=== PATIENT | female | born 1935 | race Caucasian/White ===

== ENCOUNTER 2017-06-22 16:04 | Outpatient (CLI) | payer MEDICARE, OTHER ==
--- NOTE | 2017-06-22 17:33 | RAD ---
RIGHT SHOULDER THREE VIEWS: History: Right shoulder pain. Comparison: 08-15-14 FINDINGS: Acromioclavicular and glenohumeral alignment are maintained. Chronic widening of the acromioclavicula r space is stable. Coracoclavicular distance is within normal limits. No acute fracture or dislocatio n are visible. IMPRESSION: No acute osseous abnormalities are demonstrated. POS: [facility]
== END 2017-06-22 16:05 | disposition home or self-care (01) ==
LOC: TBSIIMAG 16:04
PROVIDERS: ATTEND Psychiatry & Neurology Neurology
DX: G56.20 Lesion of ulnar nerve, unspecified upper limb (principal)

== ENCOUNTER 2017-11-12 16:40 | Emergency (ER) | payer MEDICARE, OTHER ==
[2017-11-12 17:28] LABS: #Basophils 0.1 thou/uL (0.0-0.2); #Eosinphils 0.2 thou/uL (0.0-0.7); #Monocytes 0.7 thou/uL (0.11-0.59); #Neutrophils 5.5 thou/uL (1.40-6.50); %Basophils 0.7 % (0.0-1.0); %Eosinophils 2.5 % (0.0-10.0); %Lymphocytes 23.2 % (21.0-51.0); %Monocytes 7.9 % (0.0-10.0); %Neutrophils 65.7 % (42.0-75.0); Hemoglobin 14.5 g/dL (12.0-16.0); Mean Corpuscular HGB CONC 34.8 g/dL (32.0-36.0); Mean Corpuscular Hemoglobin 30.6 pg (27.0-31.0); Mean Corpuscular Volume 87.9 fl (81.0-99.0); Mean Platelet Volume 8.7 fL (7.4-10.4); Platelet Count 188 thou/uL (130-400); RBC Distribution Width 11.8 % (11.5-14.5); Red Blood Cell (RBC) Count 4.74 mill/uL (4.20-5.40); White Blood Cell (WBC) Count 8.4 thou/uL (4.8-10.8)
[2017-11-12 17:51] LABS: ALT (SGPT) 37 U/L (8-55); AST (SGOT) 37 U/L (5-34); Albumin 4.6 g/dL (3.4-4.8); Alkaline Phosphatase 52 U/L (40-150); Anion Gap 13 mmol/L (10-20); BUN (Urea Nitrogen) 23 mg/dL (9.8-20.1); Bilirubin, Total 0.5 mg/dL (0.2-1.2); CK (CPK) 120 U/L (29-168); Calc. Creatinine Clearance 0 mL/min (70-130); Calcium 9.9 mg/dL (7.8-10.44); Carbon Dioxide 25 mmol/L (23-31); Chloride 104 mmol/L (98-107); Estimated GFR-MDRD 29; Globulin 2.6 g/dL (2.4-3.5); Glucose 150 mg/dL (83-110); Potassium 4.2 mmol/L (3.5-5.1); Protein, Total 7.2 g/dL (6.0-8.3); Sodium 138 mmol/L (136-145)
[2017-11-12] MEDS ORDERED: hydrALAZINE 20 MG/ML VIAL ONE (17:52)
[2017-11-12 17:56] LABS: CKMB 1.7 ng/mL (0-6.6); Troponin I Less than 0.010 ng/mL (< 0.028)
[2017-11-12 18:18] LABS: Bilirubin Negative (Negative); Blood, Urine Negative (Negative); Clarity CLEAR (Clear); Glucose, Urine (Dipstick) Negative (Negative); Leukocyte Negative (Negative); Nitrite Negative (Negative); Protein, Urine (Dipstick) Negative (Neg-Trace); Specific Gravity, Urine 1.006 (1.002-1.036); Urobilinogen 0.2 mg/dL (0.2-1.0); pH, Urine 6.5 (5.0-9.0)
== END 2017-11-12 19:25 | disposition home or self-care (01) ==
LOC: ERS 16:40
DX: I12.9 Hypertensive chronic kidney disease with stage 1 through stage 4 chronic kidney disease, or unspecified chronic kidney disease (principal); N18.4 Chronic kidney disease, stage 4 (severe); E11.9 Type 2 diabetes mellitus without complications; E03.9 Hypothyroidism, unspecified; E78.5 Hyperlipidemia, unspecified; M81.0 Age-related osteoporosis without current pathological fracture; Z79.899 Other long term (current) drug therapy; Z79.82 Long term (current) use of aspirin
CPT/HCPCS: 36415; 80053; 81003; 82550; 82553; 84484; 85025; 93005; 94760; 96361; 96374; J0360

== ENCOUNTER 2017-12-21 09:26 | Outpatient (CLI) | payer MEDICARE, OTHER | END 2017-12-21 09:27 | disposition home or self-care (01) | LOC: BICMAMMO 09:26 | PROVIDERS: ATTEND Internal Medicine | DX: Z12.31 Encounter for screening mammogram for malignant neoplasm of breast (principal); Z13.820 Encounter for screening for osteoporosis; M85.89 Other specified disorders of bone density and structure, multiple sites | CPT/HCPCS: 77063; 77067; 77080 ==

== ENCOUNTER 2018-02-27 10:31 | Outpatient (CLI) | payer MEDICARE, OTHER | END 2018-02-27 10:32 | disposition home or self-care (01) | LOC: BICRAD 10:31 | PROVIDERS: ATTEND Otolaryngology Plastic Surgery within the Head & Neck | DX: R05 Cough (principal); M35.3 Polymyalgia rheumatica | CPT/HCPCS: 71046 ==

== ENCOUNTER 2018-03-31 10:08 | Emergency (ER) | payer MEDICARE, OTHER ==
--- NOTE | 2018-03-31 11:03 | RAD ---
LEFT HIP TWO VIEWS: HISTORY: Injury. Pain. COMPARISON: None. FINDINGS: There is no acute fracture or malalignment. The left obturator ring is intact. Numerous phleboliths in the pelvis. Moderate vascular calcifications. There is enthesopathic change of the left greater trochanter. IMPRESSION: 1. No acute abnormality. 2. Low grade degenerative changes. 3. Mild enthesopathic changes of the greater trochanter can be seen with chronically gluteus medius tendinosis and partial tearing. POS: [facility]
== END 2018-03-31 11:57 | disposition home or self-care (01) ==
LOC: ERS 10:08
DX: M25.552 Pain in left hip (principal); E03.9 Hypothyroidism, unspecified; E78.5 Hyperlipidemia, unspecified; N18.4 Chronic kidney disease, stage 4 (severe); Z79.899 Other long term (current) drug therapy; Z79.82 Long term (current) use of aspirin; X50.1XXA Overexertion from prolonged static or awkward postures, initial encounter

== ENCOUNTER 2018-12-02 06:00 | Emergency (ER) | payer MEDICARE, OTHER ==
--- NOTE | 2018-12-02 07:54 | ULT ---
LEFT LOWER EXTREMITY VENOUS DOPPLER: 12/02/2018 PROVIDED CLINICAL HISTORY: Left knee pain. FINDINGS: Herr-scale and color Doppler sonographic was performed with spectral analysis of the left common femo ral, femoral, popliteal, posterior tibial, greater saphenous, and profunda femoral veins, demonstrati ng a normal sonographic appearance to each. Popliteal fossa and Mann's cysts are noted. IMPRESSION: No sonographic evidence for left lower extremity deep venous thrombosis. POS: [facility]
--- NOTE | 2018-12-02 08:07 | RAD ---
LEFT KNEE RADIOGRAPHS FOUR VIEWS: 12/02/2018 PROVIDED CLINICAL HISTORY: Left leg pain. FINDINGS: No evidence for fracture or other acute osseous abnormality. Moderate knee joint capsular distention . If there is persistent clinical concern, conservative management and follow-up imaging are advised . Chondrocalcinosis and vascular calcification. IMPRESSION: As above. POS: [facility]
== END 2018-12-02 08:02 | disposition home or self-care (01) ==
LOC: ERS 06:00
DX: M25.562 Pain in left knee (principal); E11.9 Type 2 diabetes mellitus without complications; Z79.4 Long term (current) use of insulin

== ENCOUNTER 2018-12-10 08:21 | Emergency (ER) | payer MEDICARE, OTHER ==
[2018-12-10 08:56] LABS: #Basophils 0.1 thou/uL (0.0-0.2); #Eosinphils 0.1 thou/uL (0.0-0.7); #Lymphocytes 1.5 thou/uL (1.20-3.40); #Monocytes 0.8 thou/uL (0.11-0.59); #Neutrophils 7.5 thou/uL (1.40-6.50); %Basophils 0.6 % (0.0-1.0); %Eosinophils 0.5 % (0.0-10.0); %Monocytes 7.7 % (0.0-10.0); %Neutrophils 76.2 % (42.0-75.0); Hemoglobin 11.3 g/dL (12.0-16.0); Mean Corpuscular Hemoglobin 27.5 pg (27.0-31.0); Mean Corpuscular Volume 86.1 fL (78.0-98.0); Mean Platelet Volume 7.3 fL (7.4-10.4); Platelet Count 414 thou/uL (130-400); RBC Distribution Width 12.9 % (11.5-14.5); Red Blood Cell (RBC) Count 4.09 mill/uL (4.20-5.40); White Blood Cell (WBC) Count 9.8 thou/uL (4.8-10.8)
[2018-12-10 09:19] LABS: ALT (SGPT) 15 U/L (8-55); AST (SGOT) 18 U/L (5-34); Albumin 3.7 g/dL (3.4-4.8); Alkaline Phosphatase 66 U/L (40-150); Anion Gap 14 mmol/L (10-20); BUN (Urea Nitrogen) 30 mg/dL (9.8-20.1); Bilirubin, Total 0.3 mg/dL (0.2-1.2); Calc. Creatinine Clearance 0 mL/min (70-130); Calcium 9.5 mg/dL (7.8-10.44); Carbon Dioxide 26 mmol/L (23-31); Chloride 99 mmol/L (98-107); Estimated GFR-MDRD 37; Globulin 3.3 g/dL (2.4-3.5); Glucose 135 mg/dL (83-110); Potassium 4.2 mmol/L (3.5-5.1); Sodium 135 mmol/L (136-145)
[2018-12-10 09:36] LABS: Bilirubin Negative (Negative); Blood, Urine Negative (Negative); Clarity CLEAR (Clear); Glucose, Urine (Dipstick) Negative (Negative); Leukocyte Negative (Negative); Nitrite Negative (Negative); Protein, Urine (Dipstick) Negative (Neg-Trace); Urobilinogen 0.2 mg/dL (0.2-1.0)
[2018-12-10] MEDS ORDERED: Potassium Chloride 20 MEQ TAB ONE (09:42)
== END 2018-12-10 12:00 | disposition home or self-care (01) ==
LOC: ERS 08:21
DX: E11.649 Type 2 diabetes mellitus with hypoglycemia without coma (principal); E03.9 Hypothyroidism, unspecified; E78.5 Hyperlipidemia, unspecified; E11.22 Type 2 diabetes mellitus with diabetic chronic kidney disease; N18.3 Chronic kidney disease, stage 3 (moderate); Z79.82 Long term (current) use of aspirin; Z79.4 Long term (current) use of insulin; Z79.899 Other long term (current) drug therapy
CPT/HCPCS: 36415; 36416; 80053; 81003; 85025; 87086; 93005; 96360

== ENCOUNTER 2019-01-30 19:52 | Emergency (ER) | payer MEDICARE, OTHER ==
[2019-01-30 21:05] LABS: #Basophils 0.1 thou/uL (0.0-0.2); #Eosinphils 0.2 thou/uL (0.0-0.7); #Lymphocytes 2.1 thou/uL (1.20-3.40); #Monocytes 0.7 thou/uL (0.11-0.59); %Basophils 0.9 % (0.0-1.0); %Eosinophils 1.9 % (0.0-10.0); %Lymphocytes 26.2 % (21.0-51.0); %Monocytes 8.7 % (0.0-10.0); %Neutrophils 62.3 % (42.0-75.0); Hemoglobin 14.4 g/dL (12.0-16.0); Mean Corpuscular HGB CONC 34.1 g/dL (32.0-36.0); Mean Corpuscular Hemoglobin 28.9 pg (27.0-31.0); Mean Corpuscular Volume 84.7 fL (78.0-98.0); Mean Platelet Volume 9.4 fL (7.4-10.4); Platelet Count 184 thou/uL (130-400); RBC Distribution Width 15.2 % (11.5-14.5); White Blood Cell (WBC) Count 8.1 thou/uL (4.8-10.8)
--- NOTE | 2019-01-30 21:11 | CT ---
Head CT without contrast 01/30/2019: HISTORY: Injury, trauma, pain TECHNIQUE: Axial CT imaging at 5 mm intervals from vertex through skull base without contrast FINDINGS: Incompletely imaged anterior soft tissue swelling with increased density noted in the perio rbital region consistent with prominent soft tissue hematoma measuring at least 4.9 cm in transverse dimension. The visualized paranasal sinuses and mastoid air cells are well aerated. There is no displaced calvarial fracture. No intracranial hemorrhage, midline shift, or mass effect. Mild diffuse cerebral volume loss. There is atherosclerotic calcification of the cavernous carotid arteries and the distal vertebral arteries. IMPRESSION: Prominent scalp hematoma anteriorly. No associated fracture or intracranial hemorrhage.
[2019-01-30 21:12] LABS: Prothrombin Time 12.7 SEC (12.0-14.7)
[2019-01-30] MEDS ORDERED: HYDROcodone/Acetaminophen 10/325 mg Tablet ONE ×2 (21:15→21:21)
[2019-01-30 21:26] LABS: ALT (SGPT) 28 U/L (8-55); AST (SGOT) 28 U/L (5-34); Albumin 4.4 g/dL (3.4-4.8); Alkaline Phosphatase 60 U/L (40-150); Anion Gap 17 mmol/L (10-20); BUN (Urea Nitrogen) 36 mg/dL (9.8-20.1); Bilirubin, Total 0.3 mg/dL (0.2-1.2); Calc. Creatinine Clearance 0 mL/min (70-130); Carbon Dioxide 21 mmol/L (23-31); Chloride 102 mmol/L (98-107); Estimated GFR-MDRD 27; Globulin 2.8 g/dL (2.4-3.5); Glucose 156 mg/dL (83-110); Potassium 3.9 mmol/L (3.5-5.1); Protein, Total 7.2 g/dL (6.0-8.3); Sodium 136 mmol/L (136-145)
--- NOTE | 2019-01-30 21:55 | RAD ---
Right hand 3 views: 01/30/2019 COMPARISON: None HISTORY: Fall, trauma, pain FINDINGS: Prominent degenerative changes are noted at the first carpometacarpal joint, the first, sec ond, and third metacarpophalangeal joints, the first interphalangeal joint, and the proximal and distal interphalangeal joints of the second and third digits. No displaced fracture or evidence of dislocation is apparent. IMPRESSION: Prominent degenerative joint disease. No acute fracture or dislocation seen.
== END 2019-01-30 21:40 | disposition home or self-care (01) ==
LOC: ERS 19:52
DX: S06.0X9A Concussion with loss of consciousness of unspecified duration, initial encounter (principal); S00.83XA Contusion of other part of head, initial encounter; E11.22 Type 2 diabetes mellitus with diabetic chronic kidney disease; N18.4 Chronic kidney disease, stage 4 (severe); E03.9 Hypothyroidism, unspecified; E78.5 Hyperlipidemia, unspecified; M81.0 Age-related osteoporosis without current pathological fracture; Z79.899 Other long term (current) drug therapy; Z79.82 Long term (current) use of aspirin; Z79.4 Long term (current) use of insulin; W18.30XA Fall on same level, unspecified, initial encounter
CPT/HCPCS: 36415; 70450; 80053; 85025; 85610; 85730

== ENCOUNTER 2019-04-16 13:22 | Outpatient (CLI) | payer MEDICARE, OTHER ==
--- NOTE | 2019-04-16 16:23 | MMO ---
Bilateral MAMMO Bilat Screen [facility]. CLINICAL HISTORY: Patient is 83 years old and is seen for screening. The patient has no family history of breast cancer. The patient has no personal history of cancer. VIEWS: The views performed were: bilateral craniocaudal with tomosynthesis; bilateral mediolateral oblique with tomosynthesis; and left mediolateral oblique. FILMS COMPARED: The present examination has been compared to prior imaging studies performed at [facility] on 08/01/2014, 08/14/2015, 09/16/2016 and 12/21/2017. This study has been interpreted with the assistance of computer-aided detection. MAMMOGRAM FINDINGS: There are scattered fibroglandular densities. Benign calcifications are noted bilaterally. There are no suspicious masses, suspicious calcifications, or new areas of architectural distortion. IMPRESSION: THERE IS NO MAMMOGRAPHIC EVIDENCE OF MALIGNANCY. A ROUTINE FOLLOW-UP MAMMOGRAM IN 1 YEAR IS RECOMMENDED. THE RESULTS OF THIS EXAM WERE SENT TO THE PATIENT. ACR BI-RADS Category 2 - Benign finding MAMMOGRAPHY NOTE: 1. A negative mammogram report should not delay a biopsy if a dominant of clinically suspicious mass is present. 2. Approximately 10% to 15% of breast cancers are not detected by mammography. 3. Adenosis and dense breasts may obscure an underlying neoplasm. Reported by: KAYY OCAMPO MD Electonically Signed: [id number]
== END 2019-04-16 13:23 | disposition home or self-care (01) ==
LOC: BICMAMMO 13:22
PROVIDERS: ATTEND Internal Medicine
DX: Z12.31 Encounter for screening mammogram for malignant neoplasm of breast (principal)
CPT/HCPCS: 77063; 77067

== ENCOUNTER 2020-01-10 07:49 | Outpatient (CLI) | payer MEDICARE, OTHER ==
--- NOTE | 2020-01-10 08:50 | CT ---
EXAM: CT of the lumbar spine without contrast HISTORY: Low back pain and lumbar radiculopathy COMPARISON: 09/19/2014 TECHNIQUE: Multiple contiguous axial images were obtained in a CT of the lumbar spine without contras t. Sagittal and coronal reformats were performed. FINDINGS: Atherosclerotic calcifications are seen in the aorta. Scattered diverticula are seen in the colon. There is stable anterolisthesis of the L4 vertebral body in relation to the vertebral bodies above and below this level. Endplate degenerative changes are seen surrounding L3/4, unchanged . The L3/4 and L5/S1 intervertebral discs are narrowed. Vacuum phenomenon is seen at L3/4 and L4/5. T12/L1: There may be a small disc osteophyte complex. No significant neural foramina or central canal stenosis. No posterior facet arthrosis. L1/2: There is a small disc osteophyte complex. No posterior facet arthrosis. Mild central canal sten osis. Mild bilateral neural foraminal stenosis. L2/3: There is a small disc osteophyte complex. No posterior facet arthrosis. Mild central canal sten osis. Mild to moderate bilateral neural foraminal stenosis, left greater than right. L3/4: There is a moderate disc osteophyte complex. Moderate bilateral posterior facet arthrosis. Mode rate central canal stenosis. Severe bilateral neural foraminal stenosis. L4/5: There is a large disc osteophyte complex. Severe bilateral posterior facet arthrosis. Severe ce ntral canal stenosis. Severe bilateral neural foraminal stenosis. L5/S1: There is a small disc osteophyte complex. Severe bilateral posterior facet arthrosis. No centr al canal stenosis. Moderate to severe bilateral neural foraminal stenosis. IMPRESSION: Degenerative changes of the lumbar spine as above. Compared to the prior exam, the change s of the neural foramina at L4/5 have worsened.
== END 2020-01-10 07:50 | disposition home or self-care (01) ==
LOC: BICCT 07:49
PROVIDERS: ATTEND Internal Medicine
DX: M47.26 Other spondylosis with radiculopathy, lumbar region (principal)
CPT/HCPCS: 72131

== ENCOUNTER 2020-01-10 07:55 | Outpatient (CLI) | payer MEDICARE, OTHER ==
--- NOTE | 2020-01-10 08:36 | BD ---
EXAM: Bone densitometry using DEXA HISTORY: 84 yo female. Screening for postmenopausal osteoporosis FINDINGS: L1--bone mineral density 0.722 g/sq cm; T score -2.4 ; Z score 0.1 L2--bone mineral density 0.776 g/sq cm; T score -2.3 ; Z score 0.5 L3--bone mineral density 1.132 g/sq cm; T score 0.4 ; Z score 3.4 L4--bone mineral density 1.307 g/sq cm; T score 2.2 ; Z score 5.3 Total L1-L4--bone mineral density 1.006 g/sq cm; T score -0.4 ; Z score 2.5 Left femoral neck--bone mineral density0.705; T score -1.3 ; Z score 1.2 Total proximal left femur--bone mineral density 0.864; T score -0.6 ; Z score 1.7 The 10 year fracture risk for a major osteoporotic fracture is 12% and for a hip fracture is 3.1%. IMPRESSION: Osteopenia
== END 2020-01-10 07:56 | disposition home or self-care (01) ==
LOC: BICMAMMO 07:55
PROVIDERS: ATTEND Internal Medicine Rheumatology
DX: M81.8 Other osteoporosis without current pathological fracture (principal); M85.89 Other specified disorders of bone density and structure, multiple sites
CPT/HCPCS: 77080

== ENCOUNTER 2020-03-05 11:01 | Outpatient (CLI) | payer MEDICARE, OTHER ==
--- NOTE | 2020-03-05 12:10 | CT ---
CT of the thoracic spine: 03/05/2020 HISTORY: Neck pain radiating down the left arm, pain in the mid back TECHNIQUE: Axial CT imaging at 2 mm intervals from lower cervical spine through upper lumbar spine wi thout contrast. Coronal and sagittal reformatted imaging obtained. FINDINGS: There is a mild degree of upper thoracic spine/mid thoracic spine dextroscoliosis centered at the T5 level. There is a dual lead transvenous pacing device, inserted via a left subclavian approach. Evaluation for central canal and/or neural foraminal stenosis is limited on routine CT exam. Partially imaged lung parenchyma demonstrates no acute findings. There is atherosclerotic calcification of the coronary arteries. There is scattered atherosclerotic c alcification of the abdominal aorta. C7-T1: There is disc space narrowing with posterior osteophyte and probable central canal stenosis. U ncovertebral osteophyte formation leads to left neural foraminal stenosis. There is a nonspecific subcentimeter sclerotic focus in the C7 vertebral body. T1-2: There is no osseous cause of significant central canal or neural foraminal stenosis. T2-3: There is no osseous cause of significant central canal or neural foraminal stenosis. T3-4: There are prominent sclerotic degenerative endplate changes. No osseous cause of significant ce ntral canal or neural foraminal stenosis. T4-5: There is bilateral facet hypertrophy with associated bilateral neural foraminal stenosis. No os seous cause of significant central canal stenosis. T5-6: No osseous cause of significant central canal or neural foraminal stenosis. T6-7: There is disc space narrowing with anterior osteophyte formation and sclerotic endplate change. No osseous cause of significant central canal or neural foraminal stenosis. T7-8: The lateral facet hypertrophy with mild bilateral neural foraminal stenosis. Disc space narrowi ng with degenerative endplate change and anterior osteophyte formation. T8-9: Bilateral facet hypertrophy causes mild bilateral neural foraminal stenosis. There is disc spac e narrowing and anterior osteophyte formation. There is a nonspecific subcentimeter sclerotic focus within T8. T9-10: There is disc space narrowing with anterior osteophyte formation. Bilateral facet hypertrophy noted, left greater than right, with probable bilateral neural foraminal stenosis. T10-11: Bilateral facet hypertrophy causes mild bilateral neural foraminal stenosis. There is disc sp cecily narrowing with mild anterior osteophyte formation. T11-12: No osseous cause of significant central canal or neural foraminal stenosis T12-L1: No osseous cause of significant central canal or neural foraminal stenosis. No acute fracture or dislocation is seen involving the thoracic spine. IMPRESSION: No acute osseous abnormality. Incidental/degenerative findings as above.
== END 2020-03-05 11:02 | disposition home or self-care (01) ==
LOC: BICCT 11:01
PROVIDERS: ATTEND Anesthesiology Pain Medicine
DX: M51.24 Other intervertebral disc displacement, thoracic region (principal); M47.814 Spondylosis without myelopathy or radiculopathy, thoracic region
CPT/HCPCS: 72128

== ENCOUNTER 2020-04-29 08:05 | Outpatient (CLI) | payer MEDICARE, OTHER ==
--- NOTE | 2020-04-29 08:44 | MMO ---
Bilateral MAMMO Bilat Screen [facility]. CLINICAL HISTORY: Patient is 84 years old and is seen for screening. The patient has no family history of breast cancer. The patient has no personal history of cancer. The patient has a history of left OTHER - benign - CYST REMOVAL. VIEWS: The views performed were: bilateral craniocaudal with tomosynthesis; bilateral mediolateral oblique with tomosynthesis; and left mediolateral oblique. FILMS COMPARED: The present examination has been compared to prior imaging studies performed at [facility] on 08/14/2015, 09/16/2016, 12/21/2017 and 04/16/2019. This study has been interpreted with the assistance of computer-aided detection. MAMMOGRAM FINDINGS: There are scattered fibroglandular densities. There are stable benign appearing calcifications seen in both breasts. There are also vascular calcifications. There are no suspicious masses, suspicious calcifications, or new areas of architectural distortion. IMPRESSION: THERE IS NO MAMMOGRAPHIC EVIDENCE OF MALIGNANCY. A ROUTINE FOLLOW-UP MAMMOGRAM IN 1 YEAR IS RECOMMENDED. THE RESULTS OF THIS EXAM WERE SENT TO THE PATIENT. ACR BI-RADS Category 2 - Benign finding MAMMOGRAPHY NOTE: 1. A negative mammogram report should not delay a biopsy if a dominant of clinically suspicious mass is present. 2. Approximately 10% to 15% of breast cancers are not detected by mammography. 3. Adenosis and dense breasts may obscure an underlying neoplasm. Reported by: ANA KAMINSKI MD Electonically Signed: [id number]
== END 2020-04-29 08:06 | disposition home or self-care (01) ==
LOC: BICMAMMO 08:05
PROVIDERS: ATTEND Internal Medicine
DX: Z12.31 Encounter for screening mammogram for malignant neoplasm of breast (principal); Z91.89 Other specified personal risk factors, not elsewhere classified
CPT/HCPCS: 77063; 77067

== ENCOUNTER 2020-11-05 15:22 | Outpatient (CLI) | payer MEDICARE, OTHER | END 2020-11-05 15:23 | disposition home or self-care (01) | LOC: BICCT 15:22 | PROVIDERS: ATTEND Anesthesiology Pain Medicine | DX: M48.062 Spinal stenosis, lumbar region with neurogenic claudication (principal); M47.816 Spondylosis without myelopathy or radiculopathy, lumbar region; M47.817 Spondylosis without myelopathy or radiculopathy, lumbosacral region; M48.05 Spinal stenosis, thoracolumbar region; M48.07 Spinal stenosis, lumbosacral region | CPT/HCPCS: 72131 ==

== ENCOUNTER 2021-03-05 07:47 | Outpatient (CLI) | payer MEDICARE, OTHER | END 2021-03-05 07:48 | disposition home or self-care (01) | LOC: BICMAMMO 07:47 | PROVIDERS: ATTEND Internal Medicine Rheumatology | DX: M81.8 Other osteoporosis without current pathological fracture (principal); M85.859 Other specified disorders of bone density and structure, unspecified thigh | CPT/HCPCS: 77080 ==

== ENCOUNTER 2021-03-17 06:56 | Day surgery (SDC) | payer MEDICARE, OTHER ==
[2021-03-13 09:06] VITALS: BMI 22.1
[2021-03-17 07:53] VITALS: BP 134/57; TEMP 97.6
[2021-03-17] MEDS ORDERED: Iopamidol-M 200 41% 20 ML VIAL ONE (10:57)
[2021-03-17] MEDS ORDERED: FLU VACC QS2021-22(65YR UP)/PF 240 MCG/0.7 ML SYRINGE IM ONE (12:00)
== END 2021-03-17 09:35 | disposition home or self-care (01) ==
LOC: RAD 06:56 → EDSTATUS 08:00 → RAD 09:35
PROVIDERS: ATTEND Surgery
PROC: B02B1ZZ Computerized Tomography (CT Scan) of Spinal Cord using Low Osmolar Contrast (ICD-10-PCS; principal; 2021-03-17)
DX: M43.16 Spondylolisthesis, lumbar region (principal); M48.062 Spinal stenosis, lumbar region with neurogenic claudication; M41.86 Other forms of scoliosis, lumbar region; Z79.4 Long term (current) use of insulin; Z79.82 Long term (current) use of aspirin; Z79.899 Other long term (current) drug therapy; Z88.0 Allergy status to penicillin
CPT/HCPCS: 62304; 72132

== ENCOUNTER 2021-04-30 15:23 | Outpatient (CLI) | payer MEDICARE, OTHER ==
[2021-04-30 17:13] LABS: Hemoglobin 14.1 g/dL (12.0-15.5); Mean Corpuscular HGB CONC 32.7 g/dL (32.0-36.0); Mean Corpuscular Hemoglobin 30.1 pg (27.0-33.0); Mean Corpuscular Volume 91.9 fl (81.6-98.3); Mean Platelet Volume 10.2 fl (7.4-10.4); Platelet Count 205 10x3/uL (150-450); RBC Distribution Width 12.4 % (11.5-14.5); Red Blood Cell (RBC) Count 4.69 10x6/uL (3.90-5.03); White Blood Cell (WBC) Count 7.4 10x3/uL (3.5-10.5)
[2021-04-30 17:24] LABS: Prothrombin Time 10.6 sec (9.5-12.1)
[2021-04-30 17:25] LABS: Anion Gap 14 mmol/L (10-20); BUN (Urea Nitrogen) 21 mg/dL (9.8-20.1); Calc. Creatinine Clearance 0 mL/min (70-130); Carbon Dioxide 27 mmol/L (23-31); Chloride 99 mmol/L (98-107); Glucose 122 mg/dL (83-110); Potassium 4.3 mmol/L (3.5-5.1); Sodium 136 mmol/L (136-145)
[2021-05-01 12:08] LABS: SARS-CoV-2 PCR by NAA Not Detected (NotDetected)
== END 2021-04-30 15:24 | disposition home or self-care (01) ==
LOC: LABBT 15:23
PROVIDERS: ATTEND Surgery
DX: Z01.818 Encounter for other preprocedural examination (principal); M54.16 Radiculopathy, lumbar region; M48.062 Spinal stenosis, lumbar region with neurogenic claudication; Z20.822 Contact with and (suspected) exposure to COVID-19
CPT/HCPCS: 80048; 85027; 85610; 85730; 93005; U0003; U0005; 93010

== ENCOUNTER 2021-05-05 09:45 | Inpatient (IN) | payer MEDICARE, OTHER ==
[2021-05-01 15:55] VITALS: BMI 21.4
[2021-05-05] MEDS ORDERED: Thrombin 5000 UNITS/5 ML VIAL ONE (09:59)
[2021-05-05] MEDS ORDERED: Levofloxacin 500 mg/D5W 100 ml Premix Bag ONE (10:29)
[2021-05-05] MEDS ORDERED: Fentanyl 100 MCG/2 ML VIAL ONE ×2 (10:52→15:19)
[2021-05-05] MEDS ORDERED: Clindamycin/D5W 900 mg/50 ml Premix Bag ONE (11:48)
[2021-05-05] MEDS ORDERED: Dexamethasone 20 MG/5 ML VIAL ONE (12:08)
[2021-05-05] MEDS ORDERED: Rocuronium Bromide 10 MG/ML (10ML VIAL) ONE (12:08)
[2021-05-05] MEDS ORDERED: PROPOFOL 200 MG/20 ML VIAL ONE (12:08)
[2021-05-05] MEDS ORDERED: Ondansetron PF 4 MG/2 ML Vial ONE (12:08)
[2021-05-05] MEDS ORDERED: Lidocaine 1% PF 5 ML VIAL ONE (12:08)
[2021-05-05] MEDS ORDERED: PHENYLEPHRINE-NS 100 MCG/ML 10 ML SYRINGE ONE (12:08)
[2021-05-05] MEDS ORDERED: Acetaminophen 325 MG TAB PO PRN (12:52)
[2021-05-05] MEDS ORDERED: hydrALAZINE 20 MG/ML VIAL SLOW IVP PRN (12:59)
[2021-05-05] MEDS ORDERED: Labetalol HCl 100 MG/20 ML VIAL SLOW IVP PRN (12:59)
[2021-05-05] MEDS ORDERED: Morphine 4 MG/ML VIAL SLOW IVP PRN (13:40)
[2021-05-05] MEDS ORDERED: SUGAMMADEX SODIUM 200 MG/2 ML VIAL ONE (14:36)
[2021-05-05] MEDS ORDERED: Promethazine HCl 25 MG/ML VIAL IM PRN (14:46)
[2021-05-05] MEDS ORDERED: Ondansetron HCl/PF 4 MG/2 ML Vial IVP PRN (14:46)
[2021-05-05] MEDS ORDERED: Promethazine HCl 25 MG/ML VIAL IVPB PRN (14:46)
[2021-05-05] MEDS ORDERED: Promethazine HCl 25 MG/ML VIAL ONE (15:29)
[2021-05-05] MEDS ORDERED: Morphine 4 MG/ML VIAL ONE (16:11)
[2021-05-05] MEDS ORDERED: Dextrose 50% Abboject 50 ML SYRINGE IVP PRN (17:45)
[2021-05-05] MEDS ORDERED: Dextrose 5% in Water 1,000 ML IV PRN (17:45)
[2021-05-05] MEDS: Clindamycin/D5W 900 MG in Premix Bag 1 BAG IVPB SCH (20:44)
[2021-05-05] MEDS: hydrALAZINE 25 MG TAB PO SCH (20:51)
[2021-05-05] MEDS: cloNIDine 0.1 MG TAB PO SCH (20:52)
[2021-05-05] MEDS: Atorvastatin Calcium 40 MG TAB PO SCH (20:52)
[2021-05-05] MEDS ORDERED: Cholecalciferol 1,000 UNITS (25 MCG) TAB PO SCH (21:00)
[2021-05-05] MEDS: Polyethylene Glycol 3350 17 GM Packet PO SCH (21:02)
[2021-05-05] MEDS: HYDROcodone/Acetaminophen 7.5/325 mg Tablet PO PRN (21:11)
[2021-05-05] MEDS: Lantus 1000 UNITS/10 ML VIAL SC SCH (21:20)
[2021-05-06] MEDS: Sodium Chloride 0.9% 1,000 ML IV SCH ×4 (00:01→19:36)
[2021-05-06] MEDS: Acetaminophen/Codeine 30-300mg Tablet PO PRN (03:22)
[2021-05-06] MEDS: Clindamycin/D5W 900 MG in Premix Bag 1 BAG IVPB SCH (03:23)
[2021-05-06] MEDS: Levothyroxine Sodium 50 MCG TAB PO SCH (05:10)
[2021-05-06] MEDS: HumaLOG 300 UNITS/3 ML VIAL SC PRN ×2 (05:25→13:25)
[2021-05-06] MEDS: traMADol HCl 50 MG TAB PO PRN (06:22)
[2021-05-06] MEDS: Folic Acid 1 MG TAB PO SCH (09:25)
[2021-05-06] MEDS: Zinc Sulfate 220 MG CAP PO SCH (09:26)
[2021-05-06] MEDS: Cholecalciferol 1,000 UNITS (25 MCG) TAB PO SCH (09:26)
[2021-05-06] MEDS: hydrALAZINE 25 MG TAB PO SCH ×2 (09:27→19:37)
[2021-05-06] MEDS: cloNIDine 0.1 MG TAB PO SCH ×2 (09:28→19:37)
[2021-05-06] MEDS: HumaLOG 300 UNITS/3 ML VIAL SC SCH (09:38)
[2021-05-06] MEDS: Amlodipine 10 MG TAB PO SCH (10:00)
[2021-05-06] MEDS: HYDROcodone/Acetaminophen 7.5/325 mg Tablet PO PRN (11:51)
[2021-05-06] MEDS: Ondansetron PF 4 MG/2 ML Vial IVP PRN (11:52)
[2021-05-06] MEDS: Nebivolol HCl 5 MG TAB PO SCH (11:54)
[2021-05-06] MEDS: Lantus 1000 UNITS/10 ML VIAL SC SCH ×2 (19:35→22:16)
[2021-05-06] MEDS: Atorvastatin Calcium 40 MG TAB PO SCH (19:37)
[2021-05-06] MEDS: Polyethylene Glycol 3350 17 GM Packet PO SCH (19:37)
[2021-05-07] MEDS: Acetaminophen/Codeine 30-300mg Tablet PO PRN (03:42)
[2021-05-07] MEDS: Levothyroxine Sodium 50 MCG TAB PO SCH (06:11)
[2021-05-07 07:54] LABS: Bilirubin Negative (Negative); Blood, Urine Negative (Negative); Clarity Clear (Clear); Glucose, Urine (Dipstick) Normal (Negative); Ketone, Urine 20 mg/dL (Negative); Leukocyte 250 Leu/uL (Negative); Nitrite Negative (Negative); Protein, Urine (Dipstick) 50 mg/dL (Neg-Trace); RBC/HPF 0-3 HPF (0-3); Specific Gravity, Urine 1.021 (1.002-1.036); Squamous Epithelial 0-3 HPF (0-3); Urobilinogen Normal mg/dL (Less than 2); pH, Urine 5.5 (5.0-9.0)
[2021-05-07 07:57] LABS: Bacteria/HPF Rare-Few HPF (None Seen)
[2021-05-07 07:58] LABS: Urine Culture Reflex Yes Yes
[2021-05-07] MEDS: cloNIDine 0.1 MG TAB PO SCH ×2 (08:15→20:13)
[2021-05-07] MEDS: hydrALAZINE 25 MG TAB PO SCH ×2 (08:16→20:14)
[2021-05-07] MEDS: Nebivolol HCl 5 MG TAB PO SCH (08:16)
[2021-05-07] MEDS: Cholecalciferol 1,000 UNITS (25 MCG) TAB PO SCH (08:16)
[2021-05-07] MEDS: Amlodipine 10 MG TAB PO SCH (08:17)
[2021-05-07] MEDS: Folic Acid 1 MG TAB PO SCH (08:18)
[2021-05-07] MEDS: Zinc Sulfate 220 MG CAP PO SCH (08:18)
[2021-05-07] MEDS: HumaLOG 300 UNITS/3 ML VIAL SC SCH (08:19)
[2021-05-07] MEDS: traMADol HCl 50 MG TAB PO PRN (12:41)
[2021-05-07] MEDS: HumaLOG 300 UNITS/3 ML VIAL SC PRN (12:41)
[2021-05-07] MEDS: cefTRIAXone\\ROCEPHIN 1 GM in Sodium Chloride 0.9% 100 ML IVPB SCH (13:10)
[2021-05-07 13:27] LABS: #Lymphocytes 0.8 thou/uL (1.20-3.40); #Monocytes 1.3 thou/uL (0.11-0.59); #Neutrophils 9.2 thou/uL (1.40-6.50); %Basophils 0.3 % (0.0-1.0); %Eosinophils 0.2 % (0.0-10.0); %Lymphocytes 6.8 % (21.0-51.0); %Monocytes 11.6 % (0.0-10.0); %Neutrophils 81.1 % (42.0-75.0); Hemoglobin 10.6 g/dL (12.0-16.0); Mean Corpuscular HGB CONC 34.8 g/dL (32.0-36.0); Mean Corpuscular Hemoglobin 32.2 pg (27.0-31.0); Mean Corpuscular Volume 92.3 fL (78.0-98.0); Mean Platelet Volume 7.5 fL (7.4-10.4); Platelet Count 146 thou/uL (130-400); RBC Distribution Width 11.2 % (11.5-14.5); Red Blood Cell (RBC) Count 3.29 mill/uL (4.20-5.40); White Blood Cell (WBC) Count 11.3 thou/uL (4.8-10.8)
[2021-05-07] MEDS: tiZANidine HCl 4 MG TAB PO PRN (14:39)
[2021-05-07] MEDS: Sodium Chloride 0.9% 1,000 ML IV SCH (17:00)
[2021-05-07] MEDS: Atorvastatin Calcium 40 MG TAB PO SCH (20:13)
[2021-05-07] MEDS: Polyethylene Glycol 3350 17 GM Packet PO SCH (20:14)
[2021-05-07] MEDS: Lantus 1000 UNITS/10 ML VIAL SC SCH (20:40)
[2021-05-08] MEDS: Levothyroxine Sodium 50 MCG TAB PO SCH (05:09)
[2021-05-08 05:59] LABS: #Lymphocytes 0.8 thou/uL (1.20-3.40); #Monocytes 1.5 thou/uL (0.11-0.59); #Neutrophils 10.8 thou/uL (1.40-6.50); %Basophils 0.2 % (0.0-1.0); %Eosinophils 0.3 % (0.0-10.0); %Lymphocytes 6.1 % (21.0-51.0); %Monocytes 11.4 % (0.0-10.0); %Neutrophils 81.9 % (42.0-75.0); Hemoglobin 11.3 g/dL (12.0-16.0); Mean Corpuscular HGB CONC 34.6 g/dL (32.0-36.0); Mean Corpuscular Hemoglobin 32.1 pg (27.0-31.0); Mean Corpuscular Volume 92.6 fL (78.0-98.0); Mean Platelet Volume 7.5 fL (7.4-10.4); Platelet Count 191 thou/uL (130-400); RBC Distribution Width 11.2 % (11.5-14.5); Red Blood Cell (RBC) Count 3.51 mill/uL (4.20-5.40); White Blood Cell (WBC) Count 13.1 thou/uL (4.8-10.8)
[2021-05-08 06:18] LABS: Anion Gap 13 mmol/L (10-20); BUN (Urea Nitrogen) 14 mg/dL (9.8-20.1); Calc. Creatinine Clearance 39 mL/min (70-130); Calcium 9.1 mg/dL (7.8-10.44); Carbon Dioxide 24 mmol/L (23-31); Chloride 92 mmol/L (98-107); Glucose 170 mg/dL (83-110); Potassium 3.6 mmol/L (3.5-5.1); Sodium 125 mmol/L (136-145)
[2021-05-08] MEDS: Cholecalciferol 1,000 UNITS (25 MCG) TAB PO SCH (07:30)
[2021-05-08] MEDS: hydrALAZINE 25 MG TAB PO SCH ×2 (07:32→20:25)
[2021-05-08] MEDS: Nebivolol HCl 5 MG TAB PO SCH (07:32)
[2021-05-08] MEDS: Zinc Sulfate 220 MG CAP PO SCH (07:32)
[2021-05-08] MEDS: cloNIDine 0.1 MG TAB PO SCH ×2 (07:33→20:24)
[2021-05-08] MEDS: Amlodipine 10 MG TAB PO SCH (07:33)
[2021-05-08] MEDS: Folic Acid 1 MG TAB PO SCH (07:37)
[2021-05-08] MEDS: HumaLOG 300 UNITS/3 ML VIAL SC SCH (07:37)
[2021-05-08] MEDS: tiZANidine HCl 4 MG TAB PO PRN ×2 (07:42→21:56)
[2021-05-08] MEDS: Sodium Chloride 0.9% 1,000 ML IV SCH ×2 (09:56→20:02)
[2021-05-08] MEDS: HumaLOG 300 UNITS/3 ML VIAL SC PRN ×2 (12:11→17:42)
[2021-05-08] MEDS: cefTRIAXone\\ROCEPHIN 1 GM in Sodium Chloride 0.9% 100 ML IVPB SCH (12:19)
[2021-05-08 12:37] LABS: Creatinine, Urine 150.66 mg/dL (47-110); Sodium, Urine Less than 20 mmol/L (Not Available)
[2021-05-08] MEDS: Atorvastatin Calcium 40 MG TAB PO SCH (20:25)
[2021-05-08] MEDS: Polyethylene Glycol 3350 17 GM Packet PO SCH (20:26)
[2021-05-08] MEDS: Lantus 1000 UNITS/10 ML VIAL SC SCH (21:45)
[2021-05-08] MEDS: traMADol HCl 50 MG TAB PO PRN (21:46)
[2021-05-09] MEDS: Levothyroxine Sodium 50 MCG TAB PO SCH (06:22)
[2021-05-09] MEDS: HumaLOG 300 UNITS/3 ML VIAL SC PRN ×3 (06:30→16:23)
[2021-05-09 07:25] LABS: #Eosinphils 0.1 thou/uL (0.0-0.7); #Lymphocytes 0.6 thou/uL (1.20-3.40); #Monocytes 1.6 thou/uL (0.11-0.59); #Neutrophils 8.3 thou/uL (1.40-6.50); %Basophils 0.2 % (0.0-1.0); %Eosinophils 0.6 % (0.0-10.0); %Lymphocytes 5.7 % (21.0-51.0); %Monocytes 14.7 % (0.0-10.0); %Neutrophils 78.9 % (42.0-75.0); Hemoglobin 10.2 g/dL (12.0-16.0); Mean Corpuscular HGB CONC 34.8 g/dL (32.0-36.0); Mean Corpuscular Volume 92.1 fL (78.0-98.0); Mean Platelet Volume 8.1 fL (7.4-10.4); Platelet Count 170 thou/uL (130-400); RBC Distribution Width 11.2 % (11.5-14.5); Red Blood Cell (RBC) Count 3.19 mill/uL (4.20-5.40); White Blood Cell (WBC) Count 10.5 thou/uL (4.8-10.8)
[2021-05-09 07:43] LABS: Anion Gap 12 mmol/L (10-20); BUN (Urea Nitrogen) 20 mg/dL (9.8-20.1); Calc. Creatinine Clearance 39 mL/min (70-130); Calcium 9.1 mg/dL (7.8-10.44); Carbon Dioxide 27 mmol/L (23-31); Chloride 94 mmol/L (98-107); Glucose 168 mg/dL (83-110); Potassium 3.9 mmol/L (3.5-5.1); Sodium 129 mmol/L (136-145)
[2021-05-09 08:02] LABS: Free T4 (Free Thyroxine) 1.27 ng/dL (0.70-1.48)
[2021-05-09] MEDS: Zinc Sulfate 220 MG CAP PO SCH (08:30)
[2021-05-09] MEDS: Cholecalciferol 1,000 UNITS (25 MCG) TAB PO SCH (08:31)
[2021-05-09] MEDS: cloNIDine 0.1 MG TAB PO SCH (08:31)
[2021-05-09] MEDS: hydrALAZINE 25 MG TAB PO SCH (08:32)
[2021-05-09] MEDS: Folic Acid 1 MG TAB PO SCH (08:33)
[2021-05-09] MEDS: Amlodipine 10 MG TAB PO SCH (08:33)
[2021-05-09] MEDS: Nebivolol HCl 5 MG TAB PO SCH (08:33)
[2021-05-09] MEDS: Bisacodyl 10 MG SUPP PR PRN ×2 (08:35→09:31)
[2021-05-09] MEDS: Sodium Chloride 0.9% 1,000 ML IV SCH (09:21)
[2021-05-09] MEDS: HumaLOG 300 UNITS/3 ML VIAL SC SCH (09:29)
[2021-05-09] MEDS: HYDROcodone/Acetaminophen 7.5/325 mg Tablet PO PRN ×2 (10:17→16:26)
[2021-05-09] MEDS: Ondansetron PF 4 MG/2 ML Vial IVP PRN (11:50)
[2021-05-09] MEDS: cefTRIAXone\\ROCEPHIN 1 GM in Sodium Chloride 0.9% 100 ML IVPB SCH (13:06)
[2021-05-09 16:27] VITALS: BP 110/57; TEMP 97.8
[2021-05-09 16:29] LABS: SARS-CoV-2 PCR by NAA Not Detected (NotDetected)
== END 2021-05-09 16:39 | DRG 519 ==
LOC: SDC 09:45 → SURG B 12:52
PROVIDERS: ADMIT Surgery; ATTEND Surgery
PROC: 01NB0ZZ Release Lumbar Nerve, Open Approach (ICD-10-PCS; principal; 2021-05-05)
PROC: 0SB20ZZ Excision of Lumbar Vertebral Disc, Open Approach (ICD-10-PCS; 2021-05-05)
PROC: 01NR0ZZ Release Sacral Nerve, Open Approach (ICD-10-PCS; 2021-05-05)
DX: M48.061 Spinal stenosis, lumbar region without neurogenic claudication (principal); N39.0 Urinary tract infection, site not specified; E22.2 Syndrome of inappropriate secretion of antidiuretic hormone; Z20.822 Contact with and (suspected) exposure to COVID-19; M51.16 Intervertebral disc disorders with radiculopathy, lumbar region; E03.9 Hypothyroidism, unspecified; E11.9 Type 2 diabetes mellitus without complications; I10 Essential (primary) hypertension; K21.9 Gastro-esophageal reflux disease without esophagitis; E78.5 Hyperlipidemia, unspecified; M17.0 Bilateral primary osteoarthritis of knee; M19.012 Primary osteoarthritis, left shoulder; E86.9 Volume depletion, unspecified; Z88.0 Allergy status to penicillin; Z79.899 Other long term (current) drug therapy; Z90.710 Acquired absence of both cervix and uterus; Z79.4 Long term (current) use of insulin; Z79.890 Hormone replacement therapy; Z90.721 Acquired absence of ovaries, unilateral
CPT/HCPCS: 36415; 36416; 71045; 76000; 80048; 81001; 82533; 82570; 83930; 83935; 84300; 84439; 84443; 84481; 84550; 85025; 87086; 93970; J0696; J1100; J1815; J1956; J2270; J2405; J2550; J2704; J3010; J3370; J3490; U0003; U0005

== ENCOUNTER 2021-10-11 02:14 | Emergency (ER) | payer MEDICARE, OTHER ==
[2021-10-11 03:21] LABS: #Eosinphils 0.1 thou/uL (0.0-0.7); #Lymphocytes 1.1 thou/uL (1.20-3.40); #Monocytes 0.7 thou/uL (0.11-0.59); #Neutrophils 4.2 thou/uL (1.40-6.50); %Basophils 0.6 % (0.0-1.0); %Eosinophils 1.7 % (0.0-10.0); %Lymphocytes 17.9 % (21.0-51.0); %Monocytes 10.7 % (0.0-10.0); Hemoglobin 13.6 g/dL (12.0-16.0); Mean Corpuscular HGB CONC 33.2 g/dL (32.0-36.0); Mean Corpuscular Hemoglobin 29.5 pg (27.0-31.0); Mean Corpuscular Volume 88.9 fL (78.0-98.0); Mean Platelet Volume 7.5 fL (7.4-10.4); Platelet Count 258 thou/uL (130-400); Red Blood Cell (RBC) Count 4.62 mill/uL (4.20-5.40)
[2021-10-11 03:42] LABS: ALT (SGPT) 19 U/L (8-55); AST (SGOT) 22 U/L (5-34); Albumin 4.1 g/dL (3.4-4.8); Alkaline Phosphatase 80 U/L (40-110); Anion Gap 14 mmol/L (10-20); BUN (Urea Nitrogen) 29 mg/dL (9.8-20.1); Bilirubin, Total 0.6 mg/dL (0.2-1.2); Calc. Creatinine Clearance 0 mL/min (70-130); Calcium 8.9 mg/dL (7.8-10.44); Carbon Dioxide 22 mmol/L (23-31); Chloride 103 mmol/L (98-107); Globulin 2.4 g/dL (2.4-3.5); Glucose 161 mg/dL (83-110); Potassium 4.2 mmol/L (3.5-5.1); Protein, Total 6.5 g/dL (5.8-8.1); Sodium 135 mmol/L (136-145)
[2021-10-11] MEDS ORDERED: Morphine 4 MG/ML VIAL ONE (04:09)
[2021-10-11] MEDS ORDERED: Ondansetron PF 4 MG/2 ML Vial ONE (04:10)
[2021-10-11] MEDS ORDERED: Ketorolac Tromethamine 30 MG/ML VIAL ONE (04:10)
[2021-10-11] MEDS ORDERED: methylPREDNISolone Sod Succ/PF 125 MG/2 ML VIAL ONE (04:10)
[2021-10-11] MEDS ORDERED: HYDROmorphone 0.5 MG/0.5 ML SYRINGE ONE (05:00)
[2021-10-11] MEDS ORDERED: Iopamidol 370 76% 100 ML VIAL ONE (09:09)
== END 2021-10-11 07:56 | disposition home or self-care (01) ==
LOC: ERS 02:14
DX: M35.3 Polymyalgia rheumatica (principal); M25.512 Pain in left shoulder; E11.9 Type 2 diabetes mellitus without complications; E03.9 Hypothyroidism, unspecified; E78.5 Hyperlipidemia, unspecified; E78.00 Pure hypercholesterolemia, unspecified
CPT/HCPCS: 36415; 71275; 80053; 84484; 85025; 93005; 96374; 96375; J1170; J1885; J2270; J2405; J2930; Q9967

== ENCOUNTER 2021-12-01 14:54 | Outpatient (CLI) | payer MEDICARE, OTHER | END 2021-12-01 14:55 | disposition home or self-care (01) | LOC: BICRAD 14:54 | PROVIDERS: ATTEND Internal Medicine Rheumatology | DX: M46.92 Unspecified inflammatory spondylopathy, cervical region (principal); M47.812 Spondylosis without myelopathy or radiculopathy, cervical region | CPT/HCPCS: 72052 ==

== ENCOUNTER 2021-12-02 09:48 | Outpatient (CLI) | payer MEDICARE, OTHER | END 2021-12-02 09:49 | disposition home or self-care (01) | LOC: BICRAD 09:48 | PROVIDERS: ATTEND Physician Assistant Medical | DX: K59.09 Other constipation (principal); R14.0 Abdominal distension (gaseous) | CPT/HCPCS: 74018 ==

== ENCOUNTER 2022-09-09 23:43 | Emergency (ER) | payer MEDICARE, OTHER ==
[2022-09-10 00:18] LABS: #Basophils 0.1 thou/uL (0.0-0.2); #Eosinphils 0.2 thou/uL (0.0-0.7); #Lymphocytes 1.5 thou/uL (1.20-3.40); #Monocytes 0.9 thou/uL (0.11-0.59); #Neutrophils 5.1 thou/uL (1.40-6.50); %Basophils 0.7 % (0.0-1.0); %Eosinophils 3.2 % (0.0-10.0); %Lymphocytes 18.8 % (21.0-51.0); %Monocytes 11.1 % (0.0-10.0); %Neutrophils 66.3 % (42.0-75.0); Hemoglobin 15.2 g/dL (12.0-16.0); Mean Corpuscular Hemoglobin 30.8 pg (27.0-31.0); Mean Corpuscular Volume 90.6 fl (78.0-98.0); Platelet Count 178 10x3/uL (130-400); RBC Distribution Width 12.1 % (11.5-14.5); Red Blood Cell (RBC) Count 4.92 mill/uL (4.20-5.40); White Blood Cell (WBC) Count 7.7 10x3/uL (4.8-10.8)
[2022-09-10 00:41] LABS: ALT (SGPT) 28 U/L (8-55); AST (SGOT) 22 U/L (5-34); Albumin 4.2 g/dL (3.4-4.8); Alkaline Phosphatase 65 U/L (40-110); Anion Gap 13 mmol/L (10-20); BUN (Urea Nitrogen) 19 mg/dL (9.8-20.1); Bilirubin, Total 0.5 mg/dL (0.2-1.2); Calc. Creatinine Clearance 0 mL/min (70-130); Calcium 10.7 mg/dL (7.8-10.44); Carbon Dioxide 28 mmol/L (23-31); Chloride 102 mmol/L (98-107); Estimated GFR 49; Globulin 3.1 g/dL (2.4-3.5); Glucose 135 mg/dL (83-110); Potassium 4.1 mmol/L (3.5-5.1); Protein, Total 7.3 g/dL (5.8-8.1); Sodium 139 mmol/L (136-145)
[2022-09-10] MEDS ORDERED: Ketorolac Tromethamine 30 MG/ML VIAL ONE (00:43)
[2022-09-10] MEDS ORDERED: predniSONE 20 MG TAB ONE (01:22)
[2022-09-10] MEDS ORDERED: Morphine 4 MG/ML VIAL ONE (01:22)
== END 2022-09-10 04:41 | disposition home or self-care (01) ==
LOC: ERS 23:43
DX: M54.2 Cervicalgia (principal); R03.0 Elevated blood-pressure reading, without diagnosis of hypertension; E11.9 Type 2 diabetes mellitus without complications; E78.5 Hyperlipidemia, unspecified
CPT/HCPCS: 36415; 70450; 72125; 80053; 85025; 93005; 96374; 96375; J1885; J2270; J7512

== ENCOUNTER 2023-01-28 08:07 | Outpatient (CLI) | payer MEDICARE, OTHER ==
[2023-01-28] MEDS ORDERED: Iopamidol-370 76% 500 ML MDV (1 ML CHARGE) ONE (11:04)
== END 2023-01-28 08:08 | disposition home or self-care (01) ==
LOC: BICCT 08:07
PROVIDERS: ATTEND Internal Medicine Gastroenterology
DX: K59.09 Other constipation (principal); K56.699 Other intestinal obstruction unspecified as to partial versus complete obstruction; N28.89 Other specified disorders of kidney and ureter; E27.8 Other specified disorders of adrenal gland; K57.30 Diverticulosis of large intestine without perforation or abscess without bleeding; I70.0 Atherosclerosis of aorta; M16.0 Bilateral primary osteoarthritis of hip; M46.1 Sacroiliitis, not elsewhere classified; M19.09 Primary osteoarthritis, other specified site; M47.816 Spondylosis without myelopathy or radiculopathy, lumbar region; M43.16 Spondylolisthesis, lumbar region; M47.817 Spondylosis without myelopathy or radiculopathy, lumbosacral region; Z98.890 Other specified postprocedural states; Z95.0 Presence of cardiac pacemaker
CPT/HCPCS: 74177; Q9967

== ENCOUNTER 2023-11-04 13:00 | Inpatient (IN) | payer MEDICARE, OTHER ==
[2023-11-04 14:46] LABS: #Basophils 0.03 10x3/uL (0.0-0.2); %Basophils 0.3 % (0.0-1.0); %Eosinophils 0.3 % (0.0-10.0); %Lymphocytes 13.5 % (21.0-51.0); %Monocytes 9.6 % (0.0-10.0); %Neutrophils 75.8 % (42.0-75.0); Hematocrit 40.1 % (36.0-47.0); Hemoglobin 13.8 g/dL (12.0-16.0); Mean Corpuscular HGB CONC 34.4 g/dL (32.0-36.0); Mean Corpuscular Hemoglobin 29.1 pg (27.0-31.0); Mean Corpuscular Volume 84.6 fL (78.0-98.0); Mean Platelet Volume 9.5 fL (7.4-10.4); Platelet Count 268 10x3/uL (130-400); Red Blood Cell (RBC) Count 4.74 mill/uL (4.20-5.40)
[2023-11-04 15:17] LABS: ALT (SGPT) 22 U/L (8-55); AST (SGOT) 26 U/L (5-34); Albumin 3.8 g/dL (3.4-4.8); Alkaline Phosphatase 59 U/L (40-110); Anion Gap 14 mmol/L (10-20); BUN (Urea Nitrogen) 14 mg/dL (9.8-20.1); Bilirubin, Total 1.2 mg/dL (0.2-1.2); Calc. Creatinine Clearance 0 mL/min (70-130); Calcium 9.1 mg/dL (7.8-10.44); Carbon Dioxide 21 mmol/L (23-31); Chloride 95 mmol/L (98-107); Estimated GFR 49; Globulin 3.7 g/dL (2.4-3.5); Glucose 184 mg/dL (83-110); Potassium 4.3 mmol/L (3.5-5.1); Protein, Total 7.5 g/dL (5.8-8.1); Sodium 126 mmol/L (136-145)
[2023-11-04 15:21] LABS: Troponin I Less than 0.010 ng/mL (< 0.028)
[2023-11-04 16:04] LABS: Influenza A by NAA Not Detected (NotDetected); Influenza B by NAA Not Detected (NotDetected); SARS-CoV-2 NAA Rapid Test Not Detected (NotDetected)
[2023-11-04] MEDS ORDERED: Acetaminophen 325 MG TAB PO PRN (19:11)
[2023-11-04] MEDS ORDERED: Ondansetron ODT 4 MG TAB PO PRN (19:11)
[2023-11-04] MEDS ORDERED: HYDROcodone/Acetaminophen 5/325 mg Tablet PO PRN (19:11)
[2023-11-04] MEDS ORDERED: Glucagon 1 MG/ML KIT IM PRN (19:28)
[2023-11-04] MEDS ORDERED: Dextrose 50% Abboject 50 ML SYRINGE SLOW IVP PRN (19:28)
[2023-11-04] MEDS ORDERED: Dextrose 5% in Water 1,000 ML IV PRN (19:28)
[2023-11-04 19:39] LABS: Anion Gap 16 mmol/L (10-20); BUN (Urea Nitrogen) 12 mg/dL (9.8-20.1); Calc. Creatinine Clearance 0 mL/min (70-130); Calcium 9.6 mg/dL (7.8-10.44); Carbon Dioxide 20 mmol/L (23-31); Chloride 96 mmol/L (98-107); Estimated GFR 56; Glucose 142 mg/dL (83-110); Potassium 4.1 mmol/L (3.5-5.1); Sodium 128 mmol/L (136-145)
[2023-11-04] MEDS: Sodium Chloride 0.9% 1,000 ML IV SCH (20:53)
[2023-11-04] MEDS: guaiFENesin/Codeine 200 mg/20 mg 10 ml Cup PO PRN (20:55)
[2023-11-04] MEDS: methylPREDNISolone Sod Succ 40 MG VIAL IVP SCH (20:55)
[2023-11-04] MEDS: cefTRIAXone\\ROCEPHIN 1 GM in Sodium Chloride 0.9% 100 ML IVPB SCH (20:55)
[2023-11-04] MEDS: Doxycycline 100 MG in Sodium Chloride 0.9% 100 ML IVPB SCH (20:56)
[2023-11-04] MEDS: CO Q-10 CAPSULE 100 MG PO SCH (21:07)
[2023-11-04] MEDS: cloNIDine 0.1 MG TAB PO SCH (21:07)
[2023-11-04] MEDS: Atorvastatin Calcium 40 MG TAB PO SCH (21:07)
[2023-11-04] MEDS: Calcium Carbonate 500 MG TAB PO SCH (21:08)
[2023-11-04] MEDS: HumaLOG 300 UNITS/3 ML VIAL SC PRN (21:37)
[2023-11-04 22:08] LABS: Troponin I Less than 0.010 ng/mL (< 0.028)
[2023-11-04 22:15] VITALS: BMI 22.4
[2023-11-05 01:29] LABS: Legionella Urinary Ag Negative (Negative); Strep pneumo Urine Ag NEGATIVE (NEGATIVE)
[2023-11-05 01:30] LABS: Creatinine, Urine 46.45 mg/dL (47-110)
[2023-11-05 02:35] LABS: #Basophils Less than 0.03 10x3/uL (0.0-0.2); #Eosinphils Less than 0.03 10x3/uL (0.0-0.7); %Basophils 0.1 % (0.0-1.0); %Lymphocytes 6.8 % (21.0-51.0); %Monocytes 1.5 % (0.0-10.0); %Neutrophils 90.9 % (42.0-75.0); Hematocrit 36.5 % (36.0-47.0); Hemoglobin 12.6 g/dL (12.0-16.0); Mean Corpuscular HGB CONC 34.5 g/dL (32.0-36.0); Mean Corpuscular Hemoglobin 29.2 pg (27.0-31.0); Mean Corpuscular Volume 84.5 fL (78.0-98.0); Mean Platelet Volume 9.4 fL (7.4-10.4); Platelet Count 205 10x3/uL (130-400); RBC Distribution Width 12.8 % (11.5-14.5); Red Blood Cell (RBC) Count 4.32 mill/uL (4.20-5.40)
[2023-11-05 02:43] LABS: Hemoglobin A1c 6.4 % (4.0-6.0)
[2023-11-05 03:23] LABS: ALT (SGPT) 18 U/L (8-55); AST (SGOT) 20 U/L (5-34); Albumin 3.3 g/dL (3.4-4.8); Alkaline Phosphatase 51 U/L (40-110); Anion Gap 15 mmol/L (10-20); BUN (Urea Nitrogen) 12 mg/dL (9.8-20.1); Calc. Creatinine Clearance 41 mL/min (70-130); Calcium 9.4 mg/dL (7.8-10.44); Carbon Dioxide 19 mmol/L (23-31); Chloride 101 mmol/L (98-107); Estimated GFR 64; Globulin 3.2 g/dL (2.4-3.5); Glucose 189 mg/dL (83-110); Potassium 4.7 mmol/L (3.5-5.1); Protein, Total 6.5 g/dL (5.8-8.1); Sodium 130 mmol/L (136-145)
[2023-11-05] MEDS: HumaLOG 300 UNITS/3 ML VIAL SC PRN (05:58)
[2023-11-05] MEDS: Levothyroxine Sodium 50 MCG TAB PO SCH (05:58)
[2023-11-05] MEDS: Budesonide 0.5 MG/2 ML NEB INH SCH (06:58)
[2023-11-05] MEDS: Ipratropium/Albuterol 3 ML NEB NEB PRN (07:02)
[2023-11-05 08:00] LABS: Anion Gap 14 mmol/L (10-20); BUN (Urea Nitrogen) 12 mg/dL (9.8-20.1); Calc. Creatinine Clearance 41 mL/min (70-130); Calcium 9.3 mg/dL (7.8-10.44); Carbon Dioxide 20 mmol/L (23-31); Chloride 101 mmol/L (98-107); Estimated GFR 66; Glucose 210 mg/dL (83-110); Potassium 4.6 mmol/L (3.5-5.1); Sodium 130 mmol/L (136-145)
[2023-11-05] MEDS: Enoxaparin 30 MG (0.3 mL) SYRINGE SC SCH (08:32)
[2023-11-05] MEDS: Fluticasone Propionate Nasal Spray 16 gm Bottle NASAL SCH (08:32)
[2023-11-05] MEDS: Folic Acid 1 MG TAB PO SCH (08:33)
[2023-11-05] MEDS: Amlodipine 10 MG TAB PO SCH (08:33)
[2023-11-05] MEDS: Pantoprazole DR 40 MG TAB PO SCH (08:34)
[2023-11-05] MEDS: Zinc Sulfate 220 MG CAP PO SCH (08:34)
[2023-11-05] MEDS: Nebivolol HCl 5 MG TAB PO SCH (08:38)
[2023-11-05] MEDS ORDERED: Loratadine 10 MG TAB PO PRN (11:45)
[2023-11-05] MEDS: Benzonatate 100 MG CAP PO PRN (12:27)
[2023-11-05] MEDS: Sodium Chloride 0.9% 1,000 ML IV SCH (12:29)
[2023-11-05 13:50] LABS: Anion Gap 14 mmol/L (10-20); BUN (Urea Nitrogen) 13 mg/dL (9.8-20.1); Calc. Creatinine Clearance 39 mL/min (70-130); Carbon Dioxide 19 mmol/L (23-31); Chloride 99 mmol/L (98-107); Estimated GFR 61; Glucose 260 mg/dL (83-110); Potassium 4.2 mmol/L (3.5-5.1); Sodium 128 mmol/L (136-145)
[2023-11-05 19:08] LABS: Anion Gap 15 mmol/L (10-20); BUN (Urea Nitrogen) 18 mg/dL (9.8-20.1); Calc. Creatinine Clearance 34 mL/min (70-130); Calcium 8.8 mg/dL (7.8-10.44); Carbon Dioxide 19 mmol/L (23-31); Chloride 101 mmol/L (98-107); Estimated GFR 52; Glucose 242 mg/dL (83-110); Potassium 4.5 mmol/L (3.5-5.1); Sodium 130 mmol/L (136-145)
[2023-11-05] MEDS: Polyethylene Glycol 3350 17 GM Packet PO SCH (21:50)
[2023-11-06 06:26] LABS: Anion Gap 13 mmol/L (10-20); BUN (Urea Nitrogen) 17 mg/dL (9.8-20.1); Calc. Creatinine Clearance 43 mL/min (70-130); Calcium 8.9 mg/dL (7.8-10.44); Carbon Dioxide 20 mmol/L (23-31); Chloride 106 mmol/L (98-107); Estimated GFR 69; Glucose 196 mg/dL (83-110); Potassium 4.1 mmol/L (3.5-5.1); Sodium 135 mmol/L (136-145)
[2023-11-06] MEDS ORDERED: hydrALAZINE 20 MG/ML VIAL SLOW IVP PRN (08:27)
[2023-11-06] MEDS: Aspirin Chewable 81 MG TAB PO SCH (08:40)
[2023-11-06] MEDS: hydrALAZINE 25 MG TAB PO SCH (08:42)
[2023-11-06] MEDS: Benzonatate 100 MG CAP PO SCH (14:46)
[2023-11-06] MEDS: Doxycycline 100 MG CAP PO SCH (21:02)
[2023-11-06] MEDS: Polyethylene Glycol 3350 17 GM Packet PO SCH (21:02)
[2023-11-06] MEDS: guaiFENesin ER 600 MG TAB PO SCH (21:03)
[2023-11-06] MEDS: Insulin Glargine 30 UNITS/0.3 ML VIAL SC SCH (21:04)
[2023-11-07 00:44] VITALS: TEMP 97.8
[2023-11-07] MEDS: HumaLOG 300 UNITS/3 ML VIAL SC SCH (08:21)
[2023-11-07 08:58] LABS: Anion Gap 15 mmol/L (10-20); BUN (Urea Nitrogen) 18 mg/dL (9.8-20.1); Calc. Creatinine Clearance 41 mL/min (70-130); Calcium 10.8 mg/dL (7.8-10.44); Carbon Dioxide 23 mmol/L (23-31); Chloride 102 mmol/L (98-107); Estimated GFR 66; Glucose 106 mg/dL (83-110); Potassium 3.7 mmol/L (3.5-5.1); Sodium 136 mmol/L (136-145)
[2023-11-07] MEDS ORDERED: methylPREDNISolone Sod Succ 40 MG VIAL IVP SCH (09:00)
[2023-11-07] MEDS: predniSONE 20 MG TAB PO SCH (11:12)
[2023-11-07 13:42] VITALS: BP 128/68
[2023-11-08] MEDS ORDERED: predniSONE 20 MG TAB PO SCH (08:00)
[2023-11-08 23:09] LABS: Mycoplasma pneumoniae IgG AB 784 U/mL (0-99); Mycoplasma pneumoniae IgM AB Less than 770 U/mL (0-769)
== END 2023-11-07 14:25 | disposition home or self-care (01) | DRG 641 ==
LOC: ERS 13:00 → T4-B 17:55 → OBSVTOIN 11-05 12:31
PROVIDERS: ADMIT Internal Medicine; ATTEND Family Medicine
DX: E87.1 Hypo-osmolality and hyponatremia (principal); N18.9 Chronic kidney disease, unspecified; I13.10 Hypertensive heart and chronic kidney disease without heart failure, with stage 1 through stage 4 chronic kidney disease, or unspecified chronic kidney disease; E11.22 Type 2 diabetes mellitus with diabetic chronic kidney disease; R63.0 Anorexia; E03.9 Hypothyroidism, unspecified; M35.3 Polymyalgia rheumatica; J06.9 Acute upper respiratory infection, unspecified; K21.9 Gastro-esophageal reflux disease without esophagitis; R91.1 Solitary pulmonary nodule; E78.5 Hyperlipidemia, unspecified; M81.0 Age-related osteoporosis without current pathological fracture; Z88.0 Allergy status to penicillin; Z79.890 Hormone replacement therapy; Z79.899 Other long term (current) drug therapy; Z79.82 Long term (current) use of aspirin; Z95.0 Presence of cardiac pacemaker; Z90.710 Acquired absence of both cervix and uterus; Z68.22 Body mass index [BMI] 22.0-22.9, adult
CPT/HCPCS: 36415; 36416; 71046; 71275; 80048; 80053; 82533; 82570; 83036; 83880; 83930; 83935; 84145; 84300; 84443; 84484; 85025; 87449; 87899; 93005; 94640; J0696; J1650; J1815; J2920; J3490; J7050; J7512; J7620; J7626

== ENCOUNTER 2023-12-22 14:02 | Outpatient (CLI) | payer MEDICARE, OTHER | END 2023-12-22 14:03 | disposition home or self-care (01) | LOC: RAD 14:02 | PROVIDERS: ATTEND Internal Medicine | DX: R06.00 Dyspnea, unspecified (principal) | CPT/HCPCS: 71046 ==

== ENCOUNTER 2024-03-12 12:04 | Outpatient (CLI) | payer MEDICARE, OTHER | END 2024-03-12 12:05 | disposition home or self-care (01) | LOC: BICMAMMO 12:04 | PROVIDERS: ATTEND Internal Medicine | DX: Z12.31 Encounter for screening mammogram for malignant neoplasm of breast (principal) | CPT/HCPCS: 77063; 77067 ==

== ENCOUNTER 2024-04-02 10:31 | Emergency (ER) | payer MEDICARE, OTHER ==
[2024-04-02] MEDS ORDERED: Morphine 4 MG/ML VIAL ONE (12:44)
[2024-04-02] MEDS ORDERED: HYDROmorphone 0.5 MG/0.5 ML SYRINGE ONE ×2 (14:46→16:50)
[2024-04-02] MEDS ORDERED: Lidocaine 4% Patch ONE (14:46)
== END 2024-04-02 17:10 | disposition home or self-care (01) ==
LOC: ERS 10:31
DX: M25.552 Pain in left hip (principal); M35.3 Polymyalgia rheumatica; I12.9 Hypertensive chronic kidney disease with stage 1 through stage 4 chronic kidney disease, or unspecified chronic kidney disease; E11.22 Type 2 diabetes mellitus with diabetic chronic kidney disease; N18.4 Chronic kidney disease, stage 4 (severe); E03.9 Hypothyroidism, unspecified; E78.00 Pure hypercholesterolemia, unspecified; M81.0 Age-related osteoporosis without current pathological fracture; Z79.4 Long term (current) use of insulin; Z79.82 Long term (current) use of aspirin; Z79.85 Long-term (current) use of injectable non-insulin antidiabetic drugs
CPT/HCPCS: 73502; 82962; 86141; 96372; 99283; J1170; J2272; 36416

== ENCOUNTER 2024-04-04 11:40 | Outpatient (CLI) | payer MEDICARE, OTHER | END 2024-04-04 11:41 | disposition home or self-care (01) | LOC: BICRAD 11:40 | PROVIDERS: ATTEND Internal Medicine Rheumatology | DX: M47.817 Spondylosis without myelopathy or radiculopathy, lumbosacral region (principal); M41.9 Scoliosis, unspecified; M47.816 Spondylosis without myelopathy or radiculopathy, lumbar region; M43.16 Spondylolisthesis, lumbar region; M43.17 Spondylolisthesis, lumbosacral region | CPT/HCPCS: 72100 ==

== ENCOUNTER 2024-04-05 08:58 | Emergency (ER) | payer MEDICARE, OTHER ==
[2024-04-05] MEDS ORDERED: Ketorolac Tromethamine 30 MG (1 mL) VIAL ONE (11:16)
[2024-04-05] MEDS ORDERED: HYDROcodone/Acetaminophen 5/325 mg Tablet ONE (11:17)
== END 2024-04-05 14:35 | disposition home or self-care (01) ==
LOC: ERS 08:58
DX: M70.62 Trochanteric bursitis, left hip (principal); M76.32 Iliotibial band syndrome, left leg; E11.9 Type 2 diabetes mellitus without complications; I10 Essential (primary) hypertension; E78.00 Pure hypercholesterolemia, unspecified; E03.9 Hypothyroidism, unspecified; Z79.4 Long term (current) use of insulin; Z55.6 Problems related to health literacy; Z79.82 Long term (current) use of aspirin; Z79.899 Other long term (current) drug therapy
CPT/HCPCS: 72131; 72192; J1885; 96372

== ENCOUNTER 2025-05-08 13:24 | Outpatient (CLI) | payer MEDICARE, OTHER | END 2025-05-08 13:25 | disposition home or self-care (01) | LOC: BICMAMMO 13:24 | PROVIDERS: ATTEND Internal Medicine | DX: Z12.31 Encounter for screening mammogram for malignant neoplasm of breast (principal) | CPT/HCPCS: 77063; 77067 ==

== ENCOUNTER 2025-05-22 12:48 | Outpatient (CLI) | payer MEDICARE, OTHER | END 2025-05-22 12:49 | disposition home or self-care (01) | LOC: BICMAMMO 12:48 | PROVIDERS: ATTEND Internal Medicine Rheumatology | DX: M81.8 Other osteoporosis without current pathological fracture (principal); M85.851 Other specified disorders of bone density and structure, right thigh; M85.852 Other specified disorders of bone density and structure, left thigh | CPT/HCPCS: 77080 ==